=== PATIENT | male | born 2000 | race Asian ===

== ENCOUNTER 2025-02-19 17:21 | Emergency (ER) | payer MEDICAID ==
[~2025-02-19] VITALS: Ht 170.2 cm; Wt 82.0 kg
[2025-02-19 17:36] VITALS: O2SAT 98
[2025-02-19] MEDS ORDERED: BICT1TAB PO (20:19)
[2025-02-19] MEDS ORDERED: DOXY100C5 MT (20:19)
[2025-02-19] MEDS ORDERED: CEFI400C4 PO (20:19)
[2025-02-19 20:45] VITALS: BP 132/84; PULSE 87; RESP 13; TEMP 36.8; O2SAT 100
[2025-02-19 20:57] LABS: CLARITY URINE TURBID (CLEAR); COLOR URINE YELLOW (YELLOW); GLUCOSE URINE NEGATIVE (NEGATIVE); KETONES URINE TRACE (NEGATIVE); LEUKOCYTE ESTERASE URINE NEGATIVE (NEGATIVE); NITRITE URINE NEGATIVE (NEGATIVE); OCCULT BLOOD URINE NEGATIVE (NEGATIVE); PH URINE 8.5 (4.5-8.0); PROTEIN URINE TRACE (NEGATIVE); SPECIFIC GRAVITY URINE 1.029 (1.005-1.030); UROBILINOGEN URINE 1.0 E.U./dL (0.2-1.0)
[2025-02-19 21:07] LABS: AMORPHOUS SEDIMENT URINE 3+ /lpf; BACTERIA URINE TRACE; RBC URINE NONE SEEN /hpf (0-2); SQUAMOUS EPITHELIAL CELL URINE RARE /lpf (RARE/1+); WBC URINE NONE SEEN /hpf (0-2)
[2025-02-22 05:09] LABS: CHLAMYDIA TRACHOMATIS NAA Negative (Negative); NEISSERIA GONORRHOEAE NAA Negative (Negative)
== END 2025-02-19 20:47 | disposition home or self-care (01) ==
LOC: ER 17:21
DX: Z20.2 Contact with and (suspected) exposure to infections with a predominantly sexual mode of transmission (principal); Z76.0 Encounter for issue of repeat prescription; Z79.899 Other long term (current) drug therapy
CPT/HCPCS: 81003; 87491; 87591; 99283